=== PATIENT | female | born 1945 | race Caucasian/White ===

== ENCOUNTER → 2018-09-10 | Outpatient (CLI) | payer MEDICARE | END | disposition home or self-care (01) | LOC: LABWHC1 13:51 | PROVIDERS: ATTEND Family Medicine | DX: M16.11 Unilateral primary osteoarthritis, right hip (principal) | CPT/HCPCS: 36415; 93005 ==

== ENCOUNTER → 2018-09-10 | Outpatient (CLI) | payer MEDICARE ==
[2018-09-10 14:48] LABS: Basophils % (A) 1 %; Eosinophils # (A) 0.1 k/uL (0-0.7); Eosinophils % (A) 1 %; HCT 41.4 % (34.0-46.0); HGB 13.6 gm/dL (11.4-16.0); Lymphocytes # (A) 1.9 k/uL (1.0-4.8); Lymphocytes % (A) 26 %; MCH 28.8 pg (25.0-35.0); MCHC 32.8 g/dL (31.0-37.0); MCV 87.8 fL (80.0-100.0); Mean Platelet Volume 7.4; Monocytes # (A) 0.5 k/uL (0-1.0); Monocytes % (A) 6 %; Neutrophils # (A) 4.7 k/uL (1.3-7.7); Neutrophils % (A) 64 %; Platelet Count 230 k/uL (150-450); RBC 4.71 m/uL (3.80-5.40); RDW 13.6 % (11.5-15.5); WBC 7.3 k/uL (3.8-10.6)
[2018-09-10 14:56] LABS: Potassium 4.5 mmol/L (3.5-5.1)
[2018-09-10 15:05] LABS: INR 0.9 (<1.2); Partial Thromboplastin Time 22.6 sec (22.0-30.0); Prothrombin Time 10.2 sec (9.0-12.0)
== END | disposition home or self-care (01) ==
LOC: LABPAT 14:15
PROVIDERS: ATTEND Orthopaedic Surgery
DX: Z01.812 Encounter for preprocedural laboratory examination (principal); M16.12 Unilateral primary osteoarthritis, left hip; Z79.01 Long term (current) use of anticoagulants
CPT/HCPCS: 36415; 80051; 85025; 85610; 85730

== ENCOUNTER 2018-09-17 06:23 | Inpatient (IN) | payer MEDICARE ==
--- NOTE | 2018-09-16 12:26 | HP ---
HISTORY AND PHYSICAL REASON FOR ADMISSION: Surgery scheduled for 09/17/2018 [place] Yip is a 73-year-old patient seen with symptomatic left hip osteoarthritis. We discussed options she had to proceed with left total hip arthroplasty. Consent regarding the procedure was obtained. Medical clearance was provided by Dr. Kunz. PAST MEDICAL HISTORY: Noncontributory. PAST SURGICAL HISTORY: Ankle surgery, excision lipoma. MEDICATIONS: Daily medications include: Vitamins. ALLERGIES: None. SOCIAL HISTORY: She denies tobacco use. PHYSICAL EXAMINATION: Evaluation of the left hip, there is limited range of motion with severe pain. Positive impingement sign. Diffuse tenderness about the hip girdle. Straight leg raise is negative. Distal neurovascular exam intact. RADIOGRAPHS: Radiographs of the left hip reveal severe osteoarthritic changes. IMPRESSION: Left hip osteoarthritis. PLAN: Left total hip arthroplasty. Surgery scheduled 09/17/2018. MMODL / IJN: [id number] /
[~2018-09-17 06:23] MED LIST: ACETAMINOPHEN TAB 500 MG TAB PO ONE; LIDOCAINE 1% 20 ML VIAL (10MG/ML) FOR IV START INTRADERMA PRN; MELOXICAM 7.5 MG TAB PO ONE; MIDAZOLAM 2 MG/2 ML VIAL IV PRN; TRANEXAMIC ACID 1,000 MG in SODIUM CHLORIDE 0.9% 100 ML IVPB ONE; ceFAZolin IN SWFI 2 GM/20 ML SYRINGE IVP ONE; fentaNYL (PF) 50 MCG/ML 2 ML AMP IV PRN
[2018-09-17] MEDS: LACTATED RINGERS 1,000 ML IV SCH ×5 (07:01→22:50)
[2018-09-17] MEDS ORDERED: ONDANSETRON 4 MG/2 ML VIAL IVP ONE (07:14)
[2018-09-17] MEDS ORDERED: DEXAMETHASONE SOD PHOS (MDV) 100 MG/10 ML VIAL IV ONE (07:15)
[2018-09-17] MEDS ORDERED: MIDAZOLAM 2 MG/2 ML VIAL ONE (07:30)
[2018-09-17] MEDS ORDERED: PROPOFOL 10 MG/ML 20 ML VIAL IV ONE (07:30)
[2018-09-17] MEDS ORDERED: TRANEXAMIC ACID 1,000 MG/10 ML VIAL ONE (07:30)
[2018-09-17] MEDS ORDERED: fentaNYL (PF) 50 MCG/ML 2 ML AMP ONE (07:30)
[2018-09-17] MEDS ORDERED: PHENYLEPHRINE-0.9% NACL SYG 1 MG/10 ML SYRINGE ONE (07:30)
[2018-09-17] MEDS ORDERED: SODIUM CHLORIDE 0.9% 100 ML BAG ONE (07:30)
[2018-09-17] MEDS ORDERED: ROPIVACAINE 246.25 MG, EPINEPHrine 0.5 MG, KETOROLAC 30 MG, cloNIDine HCL/PF 80 MCG, WA... MISCELLANE ONE ×5 (07:31)
[2018-09-17] MEDS ORDERED: ceFAZolin 3,000 MG in SODIUM CHLORIDE 0.9% IRRIGATIO 3,000 ML IRRIGATION ONE (08:09)
[2018-09-17] MEDS ORDERED: LACTATED RINGERS 1,000 ML IV ONE ×2 (09:13→12:05)
--- NOTE | 2018-09-17 09:52 | P.OP ---
Date of Procedure: 09/17/18 Preoperative Diagnosis: Left hip osteoarthritis Postoperative Diagnosis: Left hip osteoarthritis Procedure(s) Performed: Direct anterior left total hip arthroplasty Implants: 1. Depuy Corail KA size 12 press-fit femoral stem 2. Depuy pinnacle 52 mm press-fit acetabular shell 3. Depuy pinnacle neutral polyethylene acetabular liner 36 mm ID 52 mm OD 4. Biolox delta ceramic femoral head +1.5 36 mm Anesthesia: local, spinal Surgeon: Alfonso Buckley Glass Blower Helper #1: Jake Rubalcava Estimated Blood Loss (ml): 100 Pathology: other (Femoral head) Condition: stable Disposition: PACU Indications for Procedure: 73-year-old patient seen with symptomatic left hip osteoarthritis. After having treatment options discussed, she elected to proceed with total hip arthroplasty Operative Findings: See description of procedure Description of Procedure: The patient was taken to the operative suite. Patient underwent a spinal anesthetic by the department of anesthesia. Patient was then transferred to the [place] table. Patient was given preoperative IV antibiotics and TXA. Both lower extremities were placed in standard leg spars. The hip was then prepped and draped in the normal sterile orthopedic fashion. A standard anterior incision was made beginning 3 cm lateral and 1 cm distal to the ASIS extending 10 cm. Dissection was then carried down through the subcutaneous soft tissues down to the fascia overlying the tensor fascia alfonso. An incision was now made through the fascia. Careful dissection was taken down exposing the tensor fascia alfonso muscle. A Cobra retractor was now placed along the medial femoral neck and a second one along the lateral femoral neck. The venous circumflex vessels were now identified, cauterized and clipped. We identified the anterior hip capsule. An incision was made through the hip capsule along the lateral border. I performed a partial anterior capsulectomy. Retractors were now placed around the femoral neck itself. A femoral neck cut was now made with a sagittal saw. It was completed with an osteotome at the lateral neck area. The femoral head was now removed without difficulty. The extremity was now rotated to 45 of external rotation. It was locked in position. Residual labrum was now debrided out. Serial reaming was performed of the acetabulum while Suleman ZAZUETA assisted holding an anterior retractor for exposure. Once we reached the appropriate size and a trial was position and fit nicely. The appropriate size was now chosen opened and made available. It was introduced into the acetabulum without difficulty. The C-arm/fluoroscopy was now brought into the operative field. We made sure we had a true AP pelvic view. We now under direct C- arm/fluoroscopy introduced into the acetabular component with appropriate version and inclination. I held the cup in appropriate position well Suleman ZAZUETA used a mallet to seat the acetabular component. I noted the component now to be well seated and stable. Acetabular cup introduce her was removed. The C-arm was pulled back. An appropriate liner was introduced and clicked into position. It was felt to be stable. At this point retractors were removed. The extremity was now placed into 120 external rotation with no traction. The leg was now dropped to the ground and adducted. Appropriate retractors were now positioned along the proximal femur. We also placed our femoral look into position. Additional capsular releasing was performed to gain access to the proximal femur. We now used a box osteotome. A canal finder was now utilized. Serial broaching was now performed with the assistance of Suleman ZAZUETA tapping the broaches down with a mallet while held the broach in appropriate rotation and position. This was done until we reached the appropriate size with good overall rotational stability. Appropriate calcar planing was performed. A trial head/neck was placed into position. The hip was now reduced. The C-arm /fluoroscopy was brought back into the operative field. A spot film was obtained of the nonoperative hip. A spot film was obtained of the trial components. Overlays were performed, we noted good overall alignment and positioning for determining leg length. The C-arm/fluoroscopy was pulled back. Retractors were repositioned and the hip was dislocated. The leg was again taken down to the ground and adducted. Appropriate retractors were repositioned as well as the femoral hook. All trial components were removed. The femoral implant was opened along with the femoral head. The femoral implant was introduced on the appropriate handle into our pre-broached area. I held the component position well Suleman ZAZUETA used a mallet to seat the femoral component. The femoral component was now noted to be well seated and stable.. The femoral head was introduced with good positioning and fixation noted. Retractors were now removed. The hip was now reduced. There appeared be good positioning of the hip confirmed on intraoperative fluoroscopy. Spot films were obtained to document this. A second gram of TXA was given. The deep and superficial soft tissues were infiltrated with local analgesic. Bipolar cautery had been utilized intermittently through the procedure for hemostasis. The wound was irrigated copiously with pulse lavage mechanical irrigation. The fascia was repaired with Vicryl suture. The subcutaneous soft tissues were repaired in layers with Vicryl suture. The skin was approximated with pernio/Dermabond. Sterile dressings were applied. Patient was then awakened, transferred to a bed and taken to recovery in stable condition. Suleman ZAZUETA assisted with the complex procedure.
[2018-09-17] MEDS ORDERED: traMADol 50 MG TAB PO PRN (09:53)
[2018-09-17] MEDS ORDERED: NALOXONE 0.4 MG/ML 1 ML VIAL IV PRN (09:53)
[2018-09-17] MEDS ORDERED: ONDANSETRON 4 MG/2 ML VIAL IVP PRN (09:53)
[2018-09-17] MEDS ORDERED: HYDROcodone/APAP 7.5-325MG 1 EACH TAB PO PRN (09:53)
[2018-09-17] MEDS ORDERED: HYDROmorphone 0.5 MG/0.5 ML SYRINGE IVP PRN ×3 (09:53)
--- NOTE | 2018-09-17 10:44 | FL ---
Fluoroscopy HISTORY: Hip replacement 21 seconds fluoroscopy time supplied to the referring clinician. 1 intraoperative C-arm images docum ent the procedure. See dictated report from orthopedic surgery.
--- NOTE | 2018-09-17 10:45 | XR ---
Limited left hip HISTORY: Left hip replacement Intraoperative C-arm image documents the procedure.
[2018-09-17] MEDS: HYDROmorphone 1 MG/ML 1 ML SYRINGE IVP ONE ×2 (11:16→11:26)
[2018-09-17 13:21] VITALS: BMI 30.3
[2018-09-17] MEDS: HYDROcodone/APAP 7.5-325MG 1 EACH TAB PO PRN ×2 (13:22→22:47)
--- NOTE | 2018-09-17 16:38 | P.CONS ---
History of Present Illness - Reason for Consult Consult date: 09/17/18 Medical management Requesting physician: Alfonso Buckley - Chief Complaint Medical management - History of Present Illness 73-year-old female with PMH of hypertension presents to [facility] for elective left hip arthroplasty. [facility] physicians has been consulted for medical management of the patient. Patient was seen and examined after surgery. No acute events overnight. Patient reports no pain at this time. She denies any headaches, lower extremity edema, nausea, vomiting, fever, cough, chest pain, shortness of breath, changes in urination or bowel habits. No changes in appetite or weight. She denies any dizziness, numbness/weakness/tingling of the extremities. Review of Systems All systems: negative Past Medical History Past Medical History: Cancer, Hyperlipidemia, Hypertension Additional Past Medical History / Comment(s): basal cell carcinoma History of Any Multi-Drug Resistant Organisms: None Reported Past Surgical History: Hysterectomy, Orthopedic Surgery Additional Past Surgical History / Comment(s): arthroscopy rt knee, rt ankle with plate and 5 screws. MOHS procedure, lipoma from neck Past Anesthesia/Blood Transfusion Reactions: No Reported Reaction Past Psychological History: No Psychological Hx Reported Smoking Status: Former smoker Past Alcohol Use History: Occasional Additional Past Alcohol Use History / Comment(s): social smoker starting in college quit in her 50's Past Drug Use History: None Reported - Past Family History Father Family Medical History: Cancer Additional Family Medical History / Comment(s): lymphoma Brother(s) Family Medical History: Cancer Additional Family Medical History / Comment(s): agent orange-brain cancer Medications and Allergies Home Medications Medication Instructions Recorded Confirmed Type Aspirin [Adult Low Dose Aspirin EC] 81 mg PO DAILY 09/07/18 09/17/18 History Bone Support 2 tab PO DAILY 09/07/18 09/17/18 History Cardioedge 1 tab PO DAILY 09/07/18 09/17/18 History Cholecalciferol (Vitamin D3) 15,000 unit PO DAILY 09/07/18 09/17/18 History [Vitamin D3] Niacin 500 mg PO DAILY 09/07/18 09/17/18 History [place]-3 Fatty Acids [[place]-3] 1,000 mg PO DAILY 09/07/18 09/17/18 History Ubidecarenone [Co Q-10] 100 mg PO DAILY 09/07/18 09/17/18 History Vit C/E/Zn/Coppr/Lutein/Zeaxan 1 cap PO DAILY 09/07/18 09/17/18 History [Preservision Areds 2 Softgel] Vitamin K 2 1 tab PO DAILY 09/07/18 09/17/18 History cloNIDine HCL [Catapres] 0.1 mg PO HS 09/07/18 09/17/18 History Allergies Allergy/AdvReac Type Severity Reaction Status Date / Time bee venom protein (honey bee) Allergy Unknown Verified 09/17/18 13:26 Sulfa (Sulfonamide Allergy Unknown Verified 09/17/18 13:26 Antibiotics) Physical Exam Vitals: Vital Signs Temp Pulse Pulse Resp BP Pulse Ox 09/17/18 12:54 90 18 149/77 93 L 09/17/18 12:49 97.7 F 64 164/90 92 L 09/17/18 12:02 92 18 150/67 93 L 09/17/18 11:30 90 20 136/63 99 09/17/18 11:00 93 20 148/65 98 09/17/18 10:45 87 18 149/65 93 L 09/17/18 10:30 86 18 147/66 95 09/17/18 10:15 87 18 142/65 95 09/17/18 10:08 97.4 F L 90 16 150/75 99 09/17/18 06:59 98.1 F 86 16 168/74 96 Intake and Output 09/17/18 09/17/18 09/17/18 06:59 14:59 22:59 Intake Total 220 Output Total 100 Balance 2100 Intake: IV 2200 Output: Estimated Blood Loss 100 General: [non toxic], [no distress], [appears at stated age] Derm: [warm], [dry] Head: [atraumatic], [normocephalic], [symmetric] Eyes: [EOMI], [no lid lag], [anicteric sclera] Mouth: [no lip lesion], [mucus membranes moist] Cardiovascular: [S1S2 reg], [no murmur], [positive DP pulse bilateral] Lungs: [CTA bilateral], [no rhonchi, no rales] , [no accessory muscle use] Abdominal: [soft], [ nontender to palpation], [no guarding], [no appreciable organomegaly] Ext: [no gross muscle atrophy], [no edema], [no contractures], [left hip dressing clean dry and intact] Neuro: [ CN II-XI grossly intact], [no focal neuro deficits] Psych: [Alert], [oriented], [appropriate affect] Assessment and Plan Assessment: Assessment and plan Hypertension Left hip osteoarthritis status post left hip arthroplasty BP 149/77. Patient reports pain started on clonidine 0.1 mg at bedtime recently. We will hold clonidine at this time. Monitor vitals, adjust medications as necessary. Postop day 0. Cefazolin for 2 doses. Continue Lovenox daily. Pain management with [place], Dilaudid as needed. Continue meloxicam. Thank you for this consult. Please call with any additional questions or concerns.
[2018-09-17] MEDS: ceFAZolin IN SWFI 2 GM/20 ML SYRINGE IVP SCH (17:01)
[2018-09-17] MEDS ORDERED: SENNOSIDES-DOCUSATE SODIUM 1 EACH TAB PO SCH (21:00)
[2018-09-18] MEDS: ceFAZolin IN SWFI 2 GM/20 ML SYRINGE IVP SCH (01:22)
[2018-09-18 01:51] VITALS: PULSE 71
[2018-09-18] MEDS: HYDROcodone/APAP 7.5-325MG 1 EACH TAB PO PRN ×2 (07:44→13:52)
[2018-09-18 08:14] VITALS: BP 107/53; RESP 17; TEMP 98.2
[2018-09-18 08:27] LABS: Basophils % (A) 0 %; Eosinophils % (A) 0 %; HCT 30.4 % (34.0-46.0); Lymphocytes # (A) 1.5 k/uL (1.0-4.8); Lymphocytes % (A) 22 %; MCH 29.5 pg (25.0-35.0); MCHC 33.5 g/dL (31.0-37.0); Monocytes # (A) 0.6 k/uL (0-1.0); Monocytes % (A) 9 %; Neutrophils # (A) 4.6 k/uL (1.3-7.7); Neutrophils % (A) 67 %; Platelet Count 200 k/uL (150-450); RBC 3.46 m/uL (3.80-5.40); RDW 13.7 % (11.5-15.5); WBC 6.8 k/uL (3.8-10.6)
[2018-09-18 08:35] LABS: HGB 10.2 gm/dL (11.4-16.0)
[2018-09-18] MEDS ORDERED: FAMOTIDINE 20 MG TAB PO SCH (09:00)
[2018-09-18] MEDS ORDERED: ENOXAPARIN 40 MG/0.4 ML SYRINGE SQ SCH (09:00)
[2018-09-18] MEDS ORDERED: MELOXICAM 7.5 MG TAB PO SCH (09:00)
--- NOTE | 2018-09-18 11:08 | P.PN ---
Subjective Progress Note Date: 09/18/18 Principal diagnosis: Status post left total hip arthroplasty Patient evaluated at bedside today, she is doing very well. She is ambulating well with therapy. Her pain is well-controlled. She denies any chest pain or shortness of breath. Objective - Vital Signs Vital signs: Vital Signs Temp 98.2 F 09/18/18 07:00 Pulse 71 09/18/18 07:00 Resp 17 09/18/18 07:00 BP 107/53 09/18/18 07:00 Pulse Ox 98 09/18/18 07:00 Intake & Output 09/17/18 09/18/18 09/18/18 18:59 06:59 18:59 Intake Total 2201 Output Total 100 Balance 2100 Intake: IV 2200 Output: Estimated Blood Loss 100 Other: Voiding Method Toilet # Voids 1 1 - Exam Left lower extremity: Incision is clean, dry, and intact. The exofin fusion tape is in good condition. There is minimal soft tissue swelling and ecchymosis surrounding the medial and lateral aspects of the incision. Calf is soft, no tenderness with palpation. Plantar flexion, dorsiflexion, EHL, FHL are intact. Sensory exam to light touch throughout the extremity is intact, dorsal pedis pulses 2+. - Labs CBC & Chem 7: 09/18/18 07:20 Labs: Abnormal Lab Results - Last 24 Hours (Table) 09/18/18 Range/Units 07:20 RBC 3.46 L (3.80-5.40) m/uL Hgb 10.2 L D (11.4-16.0) gm/dL Hct 30.4 L (34.0-46.0) % Assessment and Plan Plan: Assessment: Postoperative day 1 status post direct anterior left total hip arthroplasty Plan: Pain control, continue oral medication GI and DVT prophylaxis, likely we'll discharge on aspirin 81 mg twice a day Wound care instructions discussed Home physical therapy and nursing after discharge Medical recommendations Discharge planning: Hopeful discharged to home today Time with Patient: Less than 30
[2018-09-18] MEDS: LACTATED RINGERS 1,000 ML IV SCH (11:19)
--- NOTE | 2018-09-18 15:39 | P.PN ---
Subjective Progress Note Date: 09/18/18 Principal diagnosis: Left hip arthroplasty Patient was seen and examined. No acute events overnight. Pain well- controlled. Patient denies any chest pain, shortness of breath or palpitations. Looking for to going home. Objective - Vital Signs Vital signs: Vital Signs Temp 98.2 F 09/18/18 07:00 Pulse 71 09/18/18 07:00 Resp 17 09/18/18 07:00 BP 107/53 09/18/18 07:00 Pulse Ox 98 09/18/18 07:00 Intake & Output 09/17/18 09/18/18 09/18/18 18:59 06:59 18:59 Intake Total 2201 Output Total 100 Balance 2100 Intake: IV 2200 Output: Estimated Blood Loss 100 Other: Voiding Method Toilet # Voids 1 1 1 - Exam General: [non toxic], [no distress], [appears at stated age] Derm: [warm], [dry] Head: [atraumatic], [normocephalic], [symmetric] Eyes: [EOMI], [no lid lag], [anicteric sclera] Mouth: [no lip lesion], [mucus membranes moist] Cardiovascular: [S1S2 reg], [no murmur], [positive DP pulse bilateral] Lungs: [CTA bilateral], [no rhonchi, no rales] , [no accessory muscle use] Abdominal: [soft], [ nontender to palpation], [no guarding], [no appreciable organomegaly] Ext: [no gross muscle atrophy], [no edema], [no contractures], [left hip dressing clean dry and intact] Neuro: [no focal neuro deficits] Psych: [Alert], [oriented], [appropriate affect] - Labs CBC & Chem 7: 09/18/18 07:20 Labs: Abnormal Lab Results - Last 24 Hours (Table) 09/18/18 Range/Units 07:20 RBC 3.46 L (3.80-5.40) m/uL Hgb 10.2 L D (11.4-16.0) gm/dL Hct 30.4 L (34.0-46.0) % Assessment and Plan Assessment: Assessment and plan Hypertension Left hip osteoarthritis status post left hip arthroplasty Anemia likely secondary to acute blood loss from surgery. BP 107/53. Patient reports pain started on clonidine 0.1 mg at bedtime recently. We will hold clonidine at this time. Monitor vitals, adjust medications as necessary. Postop day 1. Cefazolin for 2 doses. Continue Lovenox daily. Pain management with [place], Dilaudid as needed. Continue meloxicam. Hemoglobin is 10.2. No signs of bleeding on physical exam. Thank you for this consult. Please call with any additional questions or concerns. Medically cleared for discharge.
== END 2018-09-18 16:08 | disposition home health service (06) | DRG 470 ==
LOC: 2ORMAIN 06:23 → 4SSUR 12:25
PROVIDERS: ADMIT Orthopaedic Surgery; ATTEND Orthopaedic Surgery
PROC: 0SRB04A Replacement of Left Hip Joint with Ceramic on Polyethylene Synthetic Substitute, Uncemented, Open Approach (ICD-10-PCS; principal; 2018-09-17 07:30)
DX: M16.12 Unilateral primary osteoarthritis, left hip (principal); D62 Acute posthemorrhagic anemia; I10 Essential (primary) hypertension; E78.5 Hyperlipidemia, unspecified; Z85.828 Personal history of other malignant neoplasm of skin; K21.9 Gastro-esophageal reflux disease without esophagitis; Z98.890 Other specified postprocedural states; Z90.710 Acquired absence of both cervix and uterus; Z87.891 Personal history of nicotine dependence; Z80.7 Family history of other malignant neoplasms of lymphoid, hematopoietic and related tissues; Z80.8 Family history of malignant neoplasm of other organs or systems; Z79.82 Long term (current) use of aspirin; Z79.899 Other long term (current) drug therapy; Z88.2 Allergy status to sulfonamides; Z91.030 Bee allergy status
CPT/HCPCS: 73501; 85025; 86850; 86900; 86901; 88300